=== PATIENT | female | born 1960 | race Caucasian/White ===

== ENCOUNTER → 2017-08-17 | Outpatient (CLI) | payer OTHER ==
--- NOTE | 2017-08-17 10:26 | KCIC ---
CHEST PA LATERAL History: Shortness of breath for 2 months, nonsmoker Comparison: None. Findings: 2 views of the chest are submitted. There is no infiltrate, pneumothorax, or effusion. The cardiac silhouette is within normal limits in size. The trachea is in the midline. No acute osseous abnormality is identified. Impression: 1. No acute radiographic abnormality is identified. Electronically signed by: Julien Mcnally MD (08/17/2017 10:22 AM) [id number]
== END | disposition home or self-care (01) ==
LOC: KCIC 10:02
PROVIDERS: ATTEND Nurse Practitioner Family
DX: R06.02 Shortness of breath (principal)
CPT/HCPCS: 71020

== ENCOUNTER → 2018-11-07 | Outpatient (CLI) | payer SELFPAY ==
--- NOTE | 2018-11-07 16:36 | KCIC ---
RS Compliance Statement: One or more of the following individualized dose reduction techniques were utilized for this examination: 1. Automated exposure control 2. Adjustment of the mA and/or kV according to patient size 3. Use of iterative reconstruction technique Coronary calcium score CT chest without contrast History: 58-year-old female with hyperlipidemia, shortness of air, hypertension and family history of CAD. Technique: With retrospective electrocardiogram gating axial reconstructed noncontrast images of the chest at the level of the coronary arteries was performed. Images were post processed on workstation and calcium score calculated using the modified Agatston Janowitz protocol. Findings: Total coronary calcium score is 125. This is a moderate plaque burden and high cardiovascular disease risk. This is based on the calcium score of 0 of the left main coronary artery, 30.7 of the left anterior descending artery, score of 15.1 of the left circumflex artery and score of 79.2 of the right coronary artery. Noncoronary findings demonstrate ectasia of the ascending thoracic aorta. Cardiac size is normal, no pericardial effusion. 2 mm nodule in the right upper lobe, image 11. There is a noncalcified soft tissue density nodule in the anterior right lower lobe measuring 8 x 9 mm, image 26. Tiny calcified granuloma medial right lower lobe. Minimal dependent atelectasis in the lower lobes. 4 mm noncalcified nodule in the medial right lower lobe, image 21. IMPRESSION: 1. Patient's total calcium score is 125. 2. There is a 9 mm noncalcified nodule in the right lower lobe. Per Fleischner Society guidelines recommend CT chest follow-up in 3 months. 3. Ectasia of the ascending thoracic aorta. Electronically signed by: Garfield Wyman MD (11/07/2018 4:34 PM) [id number]
== END | disposition home or self-care (01) ==
LOC: KCIC CT 14:56
PROVIDERS: ATTEND Nurse Practitioner Family
DX: I77.810 Thoracic aortic ectasia (principal); E78.5 Hyperlipidemia, unspecified; I10 Essential (primary) hypertension; R91.1 Solitary pulmonary nodule; Z82.49 Family history of ischemic heart disease and other diseases of the circulatory system
CPT/HCPCS: 75571

== ENCOUNTER → 2019-06-14 | Outpatient (CLI) | payer OTHER ==
--- NOTE | 2019-06-16 08:53 | KCIC ---
BILATERAL SCREENING MAMMOGRAM History: Routine screening. Comparison: Bilateral mammogram January 20, 2016 and dating back to 2008. Technique: Routine bilateral digital mammogram views were obtained. Findings: Breast Tissue Density B : There are scattered areas of fibroglandular density. There are no dominant masses, suspicious microcalcifications, or architectural distortion. IMPRESSION: No mammographic evidence of malignancy. Recommend routine screening. BI-RADS category 1: Negative. The images were reviewed with computer aided detection. Patient information is entered into the reminder system with a target due date for the next screening mammogram. Mammography is the most sensitive method for finding small breast cancers, but it does not detect them all and is not a substitute for careful clinical examination. A negative mammogram does not negate a clinically suspicious finding and should not result in delay in biopsying a clinically suspicious abnormality. "Our facility is accredited by the [employer] Mammography Program." Electronically signed by: Garfield Wyman MD (06/16/2019 8:50 AM) [id number]
== END | disposition home or self-care (01) ==
LOC: KCIC MAMMO 14:36
PROVIDERS: ATTEND Nurse Practitioner Family
DX: Z12.31 Encounter for screening mammogram for malignant neoplasm of breast (principal)
CPT/HCPCS: 77067